=== PATIENT | male | born 1990 | race Caucasian/White ===

== ENCOUNTER 2023-06-03 10:31 | Outpatient (CLI) | payer OTHER ==
--- NOTE | 2023-06-03 11:36 | Sleep Patient Instructions ---
Sleep Center Visit Summary - Patient Visit Information Reason for Visit: Initial consultation - Patient Instructions Additional Instructions: You will continue with CPAP therapy with pressure set at 7 cmH2O. A supply prescription will be updated with your DME once we have a copy of sleep study. I have written a travel CPAP as requested. We encourage you to continue to try to lose weight. Please follow up with the sleep care office in 1 year. - Clinic Information Contact: [facility] [address] [place] [address] [email or web address] T: [phone]
--- NOTE | 2023-06-03 11:43 | SLEEP CARE CONSULTATION ---
Information from patient questionnaire entered by Julia Simental. I have reviewed and concur with the information entered by Julia Simental. This document represents the service I personally performed and the decisions made by me, Leti Acharya ARNP. History of Present Illness Service Date and Time: 06/03/2023 1031 Reason for Visit: New patient, sleep apnea on CPAP therapy Chief Complaint: reports: Other (UPDATE SUPPLES) Date of Onset: 2019 Usual bedtime: 10PM Time it takes to fall asleep: 30ISH MINS Snores at night: Yes Observed to quit breathing while asleep: Yes Sleeps alone due to snoring: No Number of times waking at night: 3-4 Reasons for waking at night: reports: Bathroom, Other (UNKNOWN) Toss, Turn, or Twitch while sleeping: Yes Recalls having dreams: No Usually gets out of bed at: 615AM Feels refreshed in the morning: Yes Morning headache: Yes (AFTER A FEW HRS) Sleepy or fatigued during the day: Yes Ever fallen asleep while driving: No Takes day naps: Yes Dreams during day naps: No Prior sleep studies: Yes Year and Where: JAN 2021 [facility] [place] Additional HPI information: CHRISSY ALMAZAN was previously diagnosed to have unknown, AHI unknown, sleep apnea- hypopnea syndrome and comes in today to establish care for CPAP therapy. We have requested a copy of his last sleep study done in 2020, [facility], but have not received it yet. He thinks he was moderate to severe obstructive sleep apnea. - Parasomnia Symptoms Ever been unable to move upon waking from sleep: No Walks in sleep: No Talks in sleep: No Ever acted out dreams in sleep: No Ever felt weak in the knees when startled or emotional: No Bothered by creepy, crawly, restless sensations in legs: No Problems with memory or concentration: No CPAP Compliance Data - Data Reviewed with Patient Average duration of nightly device use: 6 hours 52 minutes Compliance rate %: 84 (80/90 days used) Current pressure setting (cmH2O): 7 Average residual AHI: 1.9 Central apnea: 0.2 Obstructive apnea: 1 Average large leak: 0 L/min Compliance data discussion: He has a [employer]Med Airsense 11. He was set up in 02/2021. He is using a N20 nasal mask, medium cushion. He is using [employer] in [place] for his supplies. Subjective Missed days of use due to: reports: other (work; machine broke and was replaced) Patient concerns: denies: aerophagia, mask discomfort, air blowing in eyes, mask leak noise, condensation in mask/hose, nasal congestion, dry mouth, nose, throat, epistaxis Observed to snore while using device: No Current pressure setting perceived as: comfortable On therapy, patient: reports: sleeping better, awakening more refreshed, being more awake and alert during the day, more rested overall. denies: drowsiness while driving Initial [place] Sleepiness Scale score: 8 (06/03/23) Past Medical History Past Medical History: reports: Anxiety Social History The patient's occupation is a AM. Patient is Single and lives in . Have you smoked in the past 12 months: No Cigarettes per day (20/pack): 20 Years of smokin Quit date: 04/2022 Smoking Pack Years: 8.0 Alcohol use: Yes Alcohol amount and frequency: 3 DRINKS A MONTH Caffeine use: Yes Caffeine amount and frequency: 1 DAILY Family History Family history of sleep disordered breathing: No Allergies and Home Medications Known drug allergies: No Drug allergies reviewed: Yes Home medication list reviewed: Yes Allergy and home medication list: Home Medications Medication Instructions Recorded Confirmed Last Taken Type Acetaminophen [Tylenol] See Rx Instructions .ROUTE .COMPLEX 06/03/23 06/03/23 Unknown History Cholecalciferol (Vitamin D3) See Rx Instructions .ROUTE .COMPLEX 06/03/23 06/03/23 Unknown History [Vitamin D3] Fluoxetine HCl [Prozac] See Rx Instructions .ROUTE .COMPLEX 06/03/23 06/03/23 Unknown History Review of Systems Cardiovascular: denies: high blood pressure Respiratory: denies: shortness of breath Gastrointestinal: denies: heartburn Neurological: denies: headaches Ear/Nose/Throat: reports: wisdom teeth removed. denies: tonsillectomy Physical Exam Vital signs obtained and entered by: JULIA William MA Blood Pressure: 141/92 (RIGHT ARM) Cuff size: regular Heart Rate: 63 O2 Saturation: 98 Height: 5 ft 9 in Weight: 248 lb 9.6 oz Body Mass Index: 36.7 BMI Classification: Obese Neck circumference: 19 Heart: regular rate and rhythm Lungs: clear bilaterally Impression and Plan 1. Obstructive Sleep Apnea-Hypopnea Syndrome, unknown, with good treatment compliance and good apnea control. On CPAP therapy, the patient has better sleep quality and is more rested overall. Patient has significant improvement of their sleep apnea and is satisfied with current CPAP therapy. Patient has been unable to get supplies because he needs an updated prescription with his current DME supplier. I will update his supplier as soon as I have a copy of his last sleep study done in 2020 in [facility]. Patient asking about requesting a prescription for a travel CPAP. He states back in [place] none of the suppliers have travel CPAP that he could obtain even though he checked with his insurance and says that he can get one covered by the insurance. I will write for a travel CPAP per his request. Patient's apnea severity and rationale for treatment to reduce apnea, improve sleep quality and reduce cardiovascular and cerebrovascular events was reviewed. I also reviewed the benefit of consistent device use of CPAP for anxiety. 2. Obesity, unspecified. Currently patients BMI is 36.7. Obesity increases the risk of apnea, CPAP pressure requirements and overall health risks especially cardiovascular and diabetes. Thus patient is advised to lose weight. * Continue CPAP pressure at 7 cmH2O * Travel CPAP * Update supply prescription once we have copy of last sleep study * Notify me if snoring with mask or feeling that the pressure is too much or too little * Attempt to lose weight * Call this office if any problems using CPAP * Return for follow up in 12 months, or sooner if concerns arise Counseling Topics: Weight loss health impact Prescriptions: Device supplies, Other (Travel CPAP) Follow up with Sleep Care in: 1 year Visit Type: In Office Time Spent with Patient (minutes): 30 Provider Statement: I spent 100% of the Face to Face Visit with the patient with greater than 50% spent counseling the patient and coordination of care.
[2023-06-03 11:54] VITALS: BP 141/92; O2SAT 98
== END 2023-06-03 10:32 | disposition home or self-care (01) ==
LOC: SC 10:31
PROVIDERS: ATTEND Nurse Practitioner Family
DX: G47.33 Obstructive sleep apnea (adult) (pediatric) (principal); E66.9 Obesity, unspecified; Z68.36 Body mass index [BMI] 36.0-36.9, adult; Z87.891 Personal history of nicotine dependence
CPT/HCPCS: 99203; 99212